=== PATIENT | male | born 1955 | race Caucasian/White ===

== ENCOUNTER → 2017-02-17 | Outpatient (CLI) | payer MEDICAID ==
[2017-02-17 09:01] LABS: LYMPH # 3.5 K/mm3 (0.7-4.5); LYMPH % 35.6 % (10-50)
[2017-02-17 09:26] LABS: BUN 10 mg/dL (7-18); GFR (ESTIMATED) 99 ML/MIN (>60)
== END ==
LOC: LAB 08:36
PROVIDERS: Otolaryngology
DX: D48.5 Neoplasm of uncertain behavior of skin (principal); Z01.812 Encounter for preprocedural laboratory examination

== ENCOUNTER 2017-02-20 08:48 | Day surgery (SDC) | payer MEDICAID ==
[~2017-02-20] VITALS: Ht 162.6 cm; Wt 99.8 kg
[2017-02-20 13:54] VITALS: BP 132/84
--- NOTE | 2017-02-20 16:33 | Operative Note ---
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 It was infiltrated with a total of 6 mL of 2 percent lidocaine containing epinephrine. The markup was incised and the lesion was excised to the level of the frontalis muscle. The specimen was submitted. Bleeding was stopped with bipolar cautery blood loss was less than 10 mL. A full-thickness graft was harvested from the LEFT postauricular area. And coaptated to the large defect with multiple 5-0 nylon sutures. The donor site was closed with multiple 4-0 nylon sutures. Dressings applied. And the patient was sent to recovery in good general condition. EBL (ml): 1 Specimens obtained: Same as above Complications: None at 1637
== END 2017-02-20 12:50 | disposition home or self-care (01) ==
LOC: SDC 08:48
PROVIDERS: Otolaryngology
PROC: 0HB1XZZ Excision of Face Skin, External Approach (ICD-10-PCS; 2017-02-20)
PROC: 0HR1X73 Replacement of Face Skin with Autologous Tissue Substitute, Full Thickness, External Approach (ICD-10-PCS; principal; 2017-02-20 10:25)
DX: C44.329 Squamous cell carcinoma of skin of other parts of face (principal)

== ENCOUNTER 2017-09-09 11:39 | Day surgery (SDC) | payer MEDICAID ==
[2017-09-09 14:55] VITALS: BP 169/97
== END 2017-09-09 14:45 | disposition home or self-care (01) ==
LOC: SDC 11:39
PROVIDERS: Ophthalmology
PROC: 08BQXZZ Excision of Right Lower Eyelid, External Approach (ICD-10-PCS; 2017-09-09)
PROC: 08RJ3JZ Replacement of Right Lens with Synthetic Substitute, Percutaneous Approach (ICD-10-PCS; principal; 2017-09-09 16:00)
DX: H26.9 Unspecified cataract (principal); H53.8 Other visual disturbances; D48.5 Neoplasm of uncertain behavior of skin; H02.9 Unspecified disorder of eyelid
CPT/HCPCS: V2632